=== PATIENT | male | born 1955 | race Caucasian/White ===

== ENCOUNTER → 2023-02-18 | Outpatient (CLI) | payer MEDICARE ==
[~2023-02-18] MED LIST: LISINOPRIL10 M1 PO; PRILOSEC20 M1 PO
== END | disposition home or self-care (01) ==
LOC: CT 07:59
PROVIDERS: ATTEND Specialist
DX: J32.0 Chronic maxillary sinusitis (principal); J32.2 Chronic ethmoidal sinusitis

== ENCOUNTER → 2023-02-27 | Day surgery (SDC) | payer MEDICARE ==
[~2023-02-27] VITALS: Ht 180.3 cm; Wt 68.0 kg
[2023-02-27 10:16] VITALS: BP 164/99
[2023-02-27 12:45] VITALS: BP 181/100
[2023-02-27 13:00] VITALS: BP 175/109
[2023-02-27 13:15] VITALS: BP 178/109
[2023-02-27 13:30] VITALS: BP 176/109
[2023-02-27 13:45] VITALS: BP 177/107
== END ==
LOC: SDC 02-25 10:15
PROVIDERS: ATTEND Specialist
DX: C11.9 Malignant neoplasm of nasopharynx, unspecified (principal); J01.00 Acute maxillary sinusitis, unspecified; I10 Essential (primary) hypertension; Z79.899 Other long term (current) drug therapy; F17.210 Nicotine dependence, cigarettes, uncomplicated; Z90.89 Acquired absence of other organs; Z98.890 Other specified postprocedural states